=== PATIENT | male | born 1980 | race Two or more races ===

== ENCOUNTER 2020-09-27 04:15 | Emergency (ER) | payer MEDICAID, OTHER ==
[~2020-09-27] VITALS: Ht 182.9 cm; Wt 81.6 kg
[2020-09-27 04:15] VITALS: BP 166/106
[2020-09-27] MEDS ORDERED: LORazepam 0.5 MG TAB PO ONE (05:45)
[2020-09-27 06:19] LABS: Basophils # (auto) 0 10 ^3/uL (0-0.2); Eosinophils # (auto) 0 10 ^3/uL (0-0.8); Eosinophils % (auto) 0.4 % (0.0-7.0); Hematocrit 45.4 % (41.0-53.0); Hemoglobin 15.8 g/dL (13.5-17.5); Lymphocytes # (auto) 0.9 10 ^3/uL (0.4-5.4); Lymphocytes % (auto) 20.8 % (10.0-50.0); Mean Corpuscular Hgb Conc. 34.7 g/dL (32.0-36.0); Mean Corpuscular Volume 92.3 fL (80.0-100.0); Monocytes # (auto) 0.4 10 ^3/uL (0-1.3); Monocytes % (auto) 9.9 % (0.0-12.0); Neutrophils % (auto) 67.9 % (37.0-80.0); Nucleated Red Blood Cells % 0.1 %; Platelet Count (auto) 265 10^3/uL (140-450); Red Blood Cells 4.92 10^6/uL (4.5-5.90); Red Cell Distribution Width 12.2 % (11.8-14.3); White Blood Cell 4.3 10^3/uL (4.4-10.8)
[2020-09-27 07:06] LABS: Albumin 4.5 g/dL (3.4-5.0); BUN/Creatinine Ratio 12.1; Potassium 3.5 mmol/L (3.5-5.1)
[2020-09-27 07:09] LABS: Bilirubin, Total 0.9 mg/dL (0.2-1.0); Total Protein 7.4 g/dL (6.4-8.2)
[2020-09-27 07:12] LABS: Acetaminophen < 2.0 ug/mL (10-30)
[2020-09-27 10:51] LABS: Urine WBC None Seen /hpf (0 - 3)
[2020-09-27 11:10] LABS: Urine Bacteria FEW /hpf (None Seen); Urine Blood Negative /uL (Negative)
[2020-09-27 11:22] LABS: Amphetamine Screen, Urine POSITIVE (NEGATIVE); Barbiturate Scree,Urine NEGATIVE (NEGATIVE); Benzodiazephine Screen, Urine NEGATIVE (NEGATIVE); Cannabinoid Screen, Urine NEGATIVE (NEGATIVE); Cocaine Screen, Urine NEGATIVE (NEGATIVE); Opiate Scree,Urine NEGATIVE (NEGATIVE); Phencyclidine Screen, Urine NEGATIVE (NEGATIVE)
[2020-09-27 11:47] LABS: Alcohol, Urine < 3.0 mg/dL (0-10)
== END 2020-09-27 13:10 | disposition home or self-care (01) ==
LOC: ER 04:15
DX: F41.9 Anxiety disorder, unspecified (principal)
CPT/HCPCS: 36415; 71045; 80053; 80307; 80320; 80329; 81001; 85025

== ENCOUNTER 2021-03-14 20:07 | Emergency (ER) | payer MEDICAID ==
[~2021-03-14] VITALS: Ht 182.9 cm; Wt 83.9 kg
[2021-03-14] MEDS ORDERED: PROPARACAINE HCL 0.5% OPTH(EYE) SOL 15ML OP PRN ×2 (20:30→20:45)
[2021-03-14] MEDS ORDERED: TETRACAINE HCL 0.5% OPTH(EYE) SOLN 4ML EACHEYE ONE (21:15)
[2021-03-14 22:07] VITALS: BP 144/94
== END 2021-03-14 22:53 | disposition home or self-care (01) ==
LOC: ER 20:07
DX: S00.201A Unspecified superficial injury of right eyelid and periocular area, initial encounter (principal); F17.210 Nicotine dependence, cigarettes, uncomplicated; X58.XXXA Exposure to other specified factors, initial encounter; Y93.89 Activity, other specified; Y92.89 Other specified places as the place of occurrence of the external cause; Y99.8 Other external cause status

== ENCOUNTER 2021-09-30 13:13 | Emergency (ER) | payer SELFPAY ==
[~2021-09-30] VITALS: Ht 180.3 cm; Wt 72.6 kg
[2021-09-30] MEDS ORDERED: SODIUM CHLORIDE 0.9% 1,000 ML IV ONE (13:30)
[2021-09-30 14:13] VITALS: BP 121/71
== END 2021-09-30 14:10 | disposition left against medical advice (07) ==
LOC: ER 13:13 → EDBD 13:13 → ER 14:10
DX: T50.901A Poisoning by unspecified drugs, medicaments and biological substances, accidental (unintentional), initial encounter (principal); F17.210 Nicotine dependence, cigarettes, uncomplicated; F12.10 Cannabis abuse, uncomplicated; F15.10 Other stimulant abuse, uncomplicated; Y92.89 Other specified places as the place of occurrence of the external cause; Z53.29 Procedure and treatment not carried out because of patient's decision for other reasons
CPT/HCPCS: 93005